=== PATIENT | male | born 2000 | race Caucasian/White ===

== ENCOUNTER 2020-06-03 14:25 | Emergency (ER) | payer OTHER ==
[~2020-06-03] VITALS: Ht 175.3 cm; Wt 104.3 kg
--- NOTE | 2020-06-03 14:39 | NUR ---
PT AMBULATED TO ER BED 1 WITH A STEADY GAIT.
--- NOTE | 2020-06-03 14:41 | NUR ---
DR. RAMON AT PT BEDSIDE FOR FURTHER EVALUATION.
--- NOTE | 2020-06-03 14:43 | NUR ---
CALLED RADIOLOGY FOR CODE BRAIN BED 01
--- NOTE | 2020-06-03 14:53 | NUR ---
ACCOMPANIED TECH TO TAKE PT TO CT VIA [facility].
[2020-06-03] MEDS ORDERED: NACL 0.9% 1,000 ML IV ONE (14:55)
[2020-06-03 14:59] VITALS: BP 118/67
[2020-06-03] MEDS ORDERED: METOCLOPRAMIDE 10 MG/2 ML INJ VIAL IVP ONE (15:00)
--- NOTE | 2020-06-03 15:11 | NUR ---
19 Y/O MALE C/O DIZZINESS X6HRS. PT STATES AT 9AM HE HAD BLURRY VISION WHICH TRANSITIONED TO DARK VISION IN RIGHT EYE AND 10AM HE DEVELOPED A HEADACHE 9/10 TO LEFT SIDE. PT STATES HE TOOK 500MG TYNENOL WITH NO RELIEF. BETWEEN 11 AND 12 PT BECAME DISORIENTED AND ALOC PER PT FATHER. PT WAS UNABLE TO ANSWER SIMPLE QUESTIONS. AFTER 12 PT BECAME ORIENTED AGAIN AND IS NOW REPORTING HEADACHE 10/10 DESCRIBES PRESSURE NON-RADIATING WITH PARETHESIA TO RIGHT ARM. PT BLOOD SUGAR 101. DENIES PMH NKA
[2020-06-03 15:14] LABS: BASOPHILS % (AUTO) 0.3 % (0.0-2.0); EOSINOPHILS # (AUTO) 0.1 K/uL (0-0.4); EOSINOPHILS % (AUTO) 0.8 % (0.0-4.0); HEMATOCRIT 44.3 % (36-52); LYMPHOCYTES # (AUTO) 1.8 K/uL (2.0-11.5); LYMPHOCYTES % (AUTO) 13.4 % (20.5-51.1); MEAN CORPUSCULAR HEMOGLOBIN 30 pg (27-31); MEAN CORPUSCULAR HGB CONC 34 g/dL (33-37); MEAN CORPUSCULAR VOLUME 87.8 fL (80-94); MONOCYTES # (AUTO) 0.7 K/uL (0.8-1.0); MONOCYTES % (AUTO) 5.5 % (1.7-9.3); NEUTROPHILS # (AUTO) 10.5 K/uL (1.8-7.7); PLATELET COUNT (AUTO) 234 K/uL (140-450); RED BLOOD CELL COUNT(AUTO) 5.04 MIL/uL (4.20-6.10); RED CELL DISTRIBUTION WIDTH 13.4 % (11.6-13.7); WHITE BLOOD COUNT (AUTO) 13.2 K/uL (4.8-10.8)
[2020-06-03 15:30] LABS: CARBON DIOXIDE 25.4 mmol/L (21-32); POTASSIUM 3.4 mmol/L (3.5-5.1)
[2020-06-03 15:32] LABS: PROTHROMBIN TIME 9.5 secs (10.8-13.4)
--- NOTE | 2020-06-03 15:53 | NUR ---
Dr. Arellano at pt bedside for further evaluation.
[2020-06-03] MEDS ORDERED: POTASSIUM CHLORIDE 10 MEQ TABER PO ONE (16:00)
[2020-06-03] MEDS ORDERED: ACETAMINOPHEN 325 MG TAB PO ONE (16:10)
[2020-06-03] MEDS ORDERED: KETOROLAC 15 MG/ML VIAL IVP ONE (16:10)
[2020-06-03] MEDS ORDERED: ONDA-24 SL (16:48)
[2020-06-03] MEDS ORDERED: ACET-2619 PO (16:48)
[2020-06-03] MEDS ORDERED: IBUP-2213 PO (16:48)
--- NOTE | 2020-06-03 16:52 | NUR ---
EMT at pt bedside for EKG.
[2020-06-03 17:25] VITALS: BP 113/87
--- NOTE | 2020-06-03 17:27 | NUR ---
Patient discharged with v/s stable. Written and verbal after care instructions given and explained. Patient alert, oriented and verbalized understanding of instructions. Ambulatory with steady gait. All questions addressed prior to discharge. ID band removed. Patient advised to follow up with PMD. Rx of acetaminophen 325mg po qid prn pain, ibuprofen 600mg po tid prn pain, and zofran 4mg odt prn n/v q8h given. Patient educated on indication of medication including possible reaction and side effects. Opportunity to ask questions provided and answered.
== END 2020-06-03 17:27 | disposition home or self-care (01) ==
LOC: MED 14:25
DX: R51.9 Headache, unspecified (principal); E87.6 Hypokalemia; D72.829 Elevated white blood cell count, unspecified; Z79.899 Other long term (current) drug therapy
CPT/HCPCS: 36415; 70450; 80048; 85025; 85610; 93005; 96374; 96375; 99285; J1885; J2765; J7030

== ENCOUNTER 2023-02-25 20:59 | Emergency (ER) | payer OTHER ==
[~2023-02-25] VITALS: Ht 177.8 cm; Wt 113.4 kg
[~2023-02-25 20:59] MED LIST: ACET-2619 PO; IBUP-2213 PO; ONDA-188 SL
[2023-02-25 21:28] VITALS: BP 119/73; PULSE 96; RESP 20; TEMP 98; O2SAT 99
[2023-02-26] MEDS: IBUPROFEN 600 MG TAB PO ONE (02:43)
[2023-02-26] MEDS ORDERED: NAPR-54 PO (02:58)
== END 2023-02-26 03:05 | disposition home or self-care (01) ==
LOC: MED 20:59
DX: S93.402A Sprain of unspecified ligament of left ankle, initial encounter (principal); Z79.899 Other long term (current) drug therapy; Z79.1 Long term (current) use of non-steroidal anti-inflammatories (NSAID); X50.1XXA Overexertion from prolonged static or awkward postures, initial encounter; Y93.21 Activity, ice skating; Y92.330 Ice skating rink (indoor) (outdoor) as the place of occurrence of the external cause; Y99.8 Other external cause status
CPT/HCPCS: 73610; 99283